=== PATIENT | female | born 1990 | race Hispanic/Latino ===

== ENCOUNTER 2021-10-25 10:44 | Outpatient (CLI) | payer MEDICAID, OTHER | END 2021-10-25 10:45 | disposition home or self-care (01) | LOC: CSHULT 10:44 | PROVIDERS: ATTEND Family Medicine | DX: Z34.82 Encounter for supervision of other normal pregnancy, second trimester (principal); Z3A.20 20 weeks gestation of pregnancy | CPT/HCPCS: 76805 ==

== ENCOUNTER 2022-03-16 12:16 | Inpatient (IN) | payer OTHER ==
[~2022-03-16 12:16] MED LIST: Bupivacaine 0.25% HCL 30 ML VIAL ONE
[2022-03-16 12:53] VITALS: BMI 36.1
[2022-03-16 13:12] LABS: Fetal Membranes Rupture RUPTURE DETECTED (No Rupture)
[2022-03-16] MEDS ORDERED: Methylergonovine 0.2 MG/ML VIAL IM PRN (13:58)
[2022-03-16] MEDS ORDERED: Acetaminophen 500 MG TAB PO PRN (13:58)
[2022-03-16] MEDS ORDERED: hydrALAZINE 20 MG/ML VIAL SLOW IVP PRN ×2 (13:58→21:21)
[2022-03-16] MEDS ORDERED: Butorphanol Tartrate 1 MG/ML VIAL SLOW IVP PRN (13:58)
[2022-03-16] MEDS ORDERED: Promethazine HCl 25 MG/ML VIAL IM PRN ×2 (13:58→15:39)
[2022-03-16] MEDS ORDERED: Lidocaine 1% (PF) 30 ML VIAL SC PRN (13:58)
[2022-03-16] MEDS ORDERED: Ondansetron PF 4 MG/2 ML Vial IVP PRN ×3 (13:58→21:21)
[2022-03-16] MEDS ORDERED: Misoprostol 200 MCG TAB PR PRN (13:58)
[2022-03-16] MEDS ORDERED: HYDROcodone/Acetaminophen 5/325 mg Tablet PO PRN ×2 (13:58→21:21)
[2022-03-16] MEDS ORDERED: Diphenoxylate HCl/Atropine Tablet PO PRN (13:58)
[2022-03-16] MEDS ORDERED: Ibuprofen 800 MG TAB PO PRN (13:58)
[2022-03-16] MEDS ORDERED: Carboprost 250 MCG/ML AMP IM PRN (13:58)
[2022-03-16] MEDS ORDERED: Penicillin G Potassium 5 MILL.UNITS in Sodium Chloride 0.9% 100 ML IVPB SCH (14:00)
[2022-03-16] MEDS ORDERED: Lactated Ringer's 1,000 ML IV SCH (14:00)
[2022-03-16] MEDS ORDERED: NS w/ Oxytocin 30 units 500 ML IV SCH ×3 (14:00→21:21)
[2022-03-16] MEDS ORDERED: Penicillin G 2.5 MILL.units 2.5 MILL.UNITS in Premix Bag 1 BAG IVPB SCH (14:00)
[2022-03-16] MEDS ORDERED: NS w/ Oxytocin 30 units 500 ML ONE (14:10)
[2022-03-16] MEDS ORDERED: Penicillin G Potassium 5 MILL.UNITS VIAL ONE (14:11)
[2022-03-16 14:41] LABS: Hemoglobin 9.8 g/dL (12.0-15.5); Mean Corpuscular HGB CONC 32.9 g/dL (32.0-36.0); Mean Corpuscular Hemoglobin 29.3 pg (27.0-33.0); Mean Corpuscular Volume 89.2 fl (81.6-98.3); Mean Platelet Volume 11.2 fl (7.4-10.4); Platelet Count 234 10x3/uL (150-450); RBC Distribution Width 13.8 % (11.5-14.5); Red Blood Cell (RBC) Count 3.34 10x6/uL (3.90-5.03); White Blood Cell (WBC) Count 11.8 10x3/uL (3.5-10.5)
[2022-03-16] MEDS ORDERED: Fentanyl 2 mcg/Bup 0.1% Cadd 100 ML ONE (15:08)
[2022-03-16 15:14] LABS: Hep B Surf Ag Non-Reactive S/CO (NonReactive)
[2022-03-16 15:15] LABS: Syphilis Antibody Nonreactive (Nonreactive); Syphilis Antibody Index 0.06 S/CO (<1.00 Non-Reactive)
[2022-03-16 15:27] LABS: SARS-CoV-2 NAA Rapid Test Not Detected (NotDetected)
[2022-03-16 15:33] LABS: HBSAg Index 0.14 S/CO (0-0.99)
[2022-03-16] MEDS ORDERED: diphenhydrAMINE 50 MG/ML VIAL IVP PRN (15:39)
[2022-03-16] MEDS ORDERED: Moisturizing Cream (Eucerin) 113 GM JAR TOP PRN (15:39)
[2022-03-16] MEDS ORDERED: Acetaminophen 325 MG TAB PO PRN (15:39)
[2022-03-16] MEDS ORDERED: Naloxone HCl 0.4 mg/ml Vial IVP PRN ×2 (15:39)
[2022-03-16] MEDS ORDERED: ePHEDrine Sulfate 50 MG/10 ML VIAL SLOW IVP PRN (15:39)
[2022-03-16] MEDS ORDERED: Communication Order-Pharmacy FS SCH (15:45)
[2022-03-16] MEDS ORDERED: Fentanyl 2 mcg/Bupivacaine 0.1% Cassette 100 ML EPIDURAL SCH (15:45)
[2022-03-16] MEDS ORDERED: Lactated Ringer's 500 ML IV PRN (15:50)
[2022-03-16] MEDS ORDERED: Bisacodyl 10 MG SUPP PR PRN (21:21)
[2022-03-16] MEDS ORDERED: Boostrix 0.5 ML (Tdap) VIAL IM ONE (21:21)
[2022-03-16] MEDS ORDERED: diphenhydrAMINE 25 MG CAP PO PRN (21:21)
[2022-03-16] MEDS ORDERED: Lanolin Ointment 7 GM TUBE TOP PRN (21:21)
[2022-03-16] MEDS ORDERED: Benzocaine-Menthol 82.5 ML CAN TOP PRN (21:21)
[2022-03-16] MEDS ORDERED: Milk Of Magnesia 30 ML UDCUP PO PRN (21:21)
[2022-03-17] MEDS: Ibuprofen 800 MG TAB PO SCH ×4 (05:36→21:00)
[2022-03-17] MEDS: Ferrous Sulfate 325 MG TAB PO SCH ×3 (07:49→19:00)
[2022-03-17] MEDS: Prenatal Vitamin 1 TAB PO SCH (07:49)
[2022-03-17] MEDS: Docusate 100 MG CAP PO SCH ×3 (07:49→20:58)
[2022-03-18] MEDS: Ibuprofen 800 MG TAB PO SCH (05:38)
[2022-03-18 08:11] VITALS: BP 110/68; TEMP 98.4
[2022-03-18] MEDS: Ferrous Sulfate 325 MG TAB PO SCH (09:37)
[2022-03-18] MEDS: Docusate 100 MG CAP PO SCH (09:37)
[2022-03-18] MEDS: Prenatal Vitamin 1 TAB PO SCH (09:37)
== END 2022-03-18 13:35 | disposition home or self-care (01) | DRG 807 ==
LOC: CSHLD/OP 12:16 → CSHLD 14:05 → CSHPP 03-17 08:10
PROVIDERS: ADMIT Family Medicine; ATTEND Family Medicine
PROC: 10H07YZ Insertion of Other Device into Products of Conception, Via Natural or Artificial Opening (ICD-10-PCS; principal; 2022-03-16)
PROC: 10E0XZZ Delivery of Products of Conception, External Approach (ICD-10-PCS; 2022-03-16)
DX: O42.02 Full-term premature rupture of membranes, onset of labor within 24 hours of rupture (principal); Z37.0 Single live birth; Z20.822 Contact with and (suspected) exposure to COVID-19; Z3A.40 40 weeks gestation of pregnancy; O99.824 Streptococcus B carrier state complicating childbirth; O70.0 First degree perineal laceration during delivery; O69.81X0 Labor and delivery complicated by cord around neck, without compression, not applicable or unspecified
CPT/HCPCS: 36415; 51702; 84112; 85027; 86780; 86850; 86900; 86901; 87340; 99285; J2540; J2590; J3490; J7120; S0020; U0002

== ENCOUNTER 2022-05-22 16:52 | Emergency (ER) | payer OTHER | END 2022-05-22 17:50 | disposition home or self-care (01) | LOC: CSHERS 16:52 | DX: K04.7 Periapical abscess without sinus (principal) | CPT/HCPCS: 99283 ==